=== PATIENT | female | born 1955 | race Caucasian/White ===

== ENCOUNTER → 2020-01-24 | Outpatient (CLI) | payer MEDICARE ==
[~2020-01-24] MED LIST: CITRACAL; EMERGEN-C PO; Hair, Skin & N1 EACH; LETR2.5; Omeprazole20 M1; PRAV20 PO; PSYL5.85P; TEMA15 PO; VIT D; [UNRECOGNIZED DRUG - OTHER] PO
[2020-01-26 11:09] LABS: HPV 16 Negative (Negative); HPV 18 Negative (Negative); HPV OTHER HR TYPES Negative (Negative)
== END | disposition home or self-care (01) ==
LOC: LAB 09:30 → LAB SHORT 09:30
PROVIDERS: Obstetrics & Gynecology
DX: Z01.419 Encounter for gynecological examination (general) (routine) without abnormal findings (principal)
CPT/HCPCS: 87624; G0123

== ENCOUNTER 2021-05-31 13:06 | Day surgery (SDC) | payer MEDICARE ==
[~2021-05-31] VITALS: Ht 154.9 cm; Wt 72.3 kg
[2021-05-31] MEDS ORDERED: ZOLEDRONIC ACID4 M1 (13:45)
== END 2021-05-31 15:22 | disposition home or self-care (01) ==
LOC: ORSCSDS 13:06
PROVIDERS: Internal Medicine Gastroenterology
PROC: 0DJD8ZZ Inspection of Lower Intestinal Tract, Via Natural or Artificial Opening Endoscopic (ICD-10-PCS; principal; 2021-05-31 14:15)
DX: Z12.11 Encounter for screening for malignant neoplasm of colon (principal); Z86.010 Personal history of colon polyps; Z80.0 Family history of malignant neoplasm of digestive organs; K57.30 Diverticulosis of large intestine without perforation or abscess without bleeding; K21.9 Gastro-esophageal reflux disease without esophagitis; Z79.899 Other long term (current) drug therapy
CPT/HCPCS: J2704; J7120